=== PATIENT | male | born 1995 | race Caucasian/White ===

== ENCOUNTER → 2018-04-28 10:31 | Outpatient (CLI) | payer OTHER, SELFPAY ==
--- NOTE | 2018-04-28 | TISS_PTH ---
PATIENT: SHAMIKA OLVERA LOC: [facility] U#:[id number] AGE/SX: 29/M ROOM: RE04/28/[address]: Dr. William Radford DDS : 1995 BED: DIS: SPEC #: [id number] RECD: 05/01/18 10:28 STATUS: RISSA SHARONDA #: [id number] JOSE LUIS: 04/28/18 00:[address]: William Radford DEPT: SURGICAL PATHOLOGY RECD BY: Pepe Sherman ENTERED: 05/01/18 12:22 SP TYPE: Tissue Bx MARSHALL DR: Dr. Glenny Meadows MD Tissues: Uvula palatina Procedures: Surgery Specimen Level III HEADER OPERATION: Uvula biopsy PRE-OP DIAGNOSIS: Appears as squamous papilloma TISSUE SUBMITTED: Soft tissue uvula MICROSCOPIC DIAGNOSIS Lesion of uvula, biopsy: Squamous papilloma. AM:jonatan 05/02/18 MICROSCOPIC DESCRIPTION Slides are reviewed. GROSS DESCRIPTION Received in fixative is one container labeled with the patient's name and designated left side of uvula. The specimen consists of a piece of salas soft tissue measuring 0.7 x 0.5 x 0.3 cm. The entire specimen is submitted in one cassette. / SJ:jonatan 05/01/18 TC:5 CPT: [id number]
== END ==
PROVIDERS: Referring Provider Dentist Oral and Maxillofacial Surgery; Visit Provider Dentist Oral and Maxillofacial Surgery
DX: D10.39 Benign neoplasm of other parts of mouth (principal)
CPT/HCPCS: 88304